=== PATIENT | male | born 1960 | race Caucasian/White ===

== ENCOUNTER 2018-01-08 12:30 | Observation (INO) ==
[2018-01-08 13:53] LABS: Basophils % 0.7 %; Eosinophils # 0.2 K/mcL (0.0-0.6); Eosinophils % 3.9 %; Hematocrit 39.2 % (37.5-50.1); Hemoglobin 13.4 g/dL (12.9-16.9); Immature Granulocytes % 0.2 % (0-4); Lymphocytes # 1.5 K/mcL (0.6-4.6); Lymphocytes % 25.2 %; Mean Corpuscular HGB Conc 34.2 g/dL (31.6-35.5); Mean Corpuscular Hemoglobin 32.8 pg (28.0-33.3); Mean Corpuscular Volume 96.1 fL (83.0-100.0); Mean Platelet Volume 9.9 fL (9.4-12.4); Monocytes # 0.8 K/mcL (0.0-1.3); Monocytes % 13.7 %; Neutrophils # 3.3 K/mcL (1.6-8.9); Platelet Count 126 K/mcL (140-400); Red Blood Count 4.08 M/mcL (4.19-5.50); Red Cell Distribution Width 14.2 % (11.5-14.5); Segmented Neutrophils % 56.3 %
[2018-01-08 14:14] LABS: BUN/Creatinine Ratio 16 (6-26); Blood Urea Nitrogen 13 mg/dL (6-20); Calcium 10.2 mg/dL (8.6-10.3); Carbon Dioxide 24 mEq/L (23-29); Chloride 106 mEq/L (98-107); Glucose 118 mg/dL (70-105); Osmolality,Calculated 285 (280-300); Potassium 4.2 mEq/L (3.5-5.1); Sodium 137 mEq/L (136-145); eGFR For Non-African Americans > 60 (> 60)
[2018-01-08 14:15] LABS: Troponin I < 0.03 ng/mL (< 0.04)
[2018-01-08] MEDS ORDERED: Sulfamethoxazole/Trimeth DS 1 EACH TABLET PO STA (15:14)
[2018-01-08] MEDS ORDERED: cephALEXin 250 MG CAPSULE PO STA (15:14)
--- NOTE | 2018-01-08 15:17 | Emergency Department Note ---
Disposition Clinical Impression: Cellulitis Qualifiers: Site of cellulitis: extremity Site of cellulitis of extremity: lower extremity Laterality: right Qualified Code(s): L03.115 - Cellulitis of right lower limb Disposition: Admitted As Inpatient Condition: Good Instructions: Cellulitis (ED) Reasons to Return/Additional Instructions: Take medications as prescribed. Continue to monitor for worsening redness. Return to the emergency department if the redness worsens despite antibiotics or he begins to have fevers or chills or worsening pain in the right leg. Otherwise, follow-up with your primary care physician in the next 2-3 days to have this reevaluated. Referrals: Willow Nick CNP [Primary Care Provider] - Forms: ED Satisfaction Letter Extremity Problem HPI - General Chief complaint: ED Extremity Problem,Nontraumatic Stated complaint: r/o cellulitis Time Seen by Provider: 01/08/18 12:38 Source: patient Mode of arrival: ambulatory Limitations: no limitations Nursing Notes Reviewed: Yes Vital Signs Reviewed: Yes - History of Present Illness HPI Narrative: Patient presents today for evaluation of right leg cellulitis. Patient states that he had swelling started on Thursday. Was sent for a ultrasound DVT. Ultrasound was negative. His primary care told him that and told him to come to the emergency department for evaluation for possible cellulitis and treatment. Patient has not had fevers or chills. Patient has had increased erythema of the lower leg which is approximately 7" x 3" in size. Not circumferential. Tenderness to touch and ultrasound shows cellulitis without any significant air. His distal pulses are intact without deficit. He does complain of some mild pain with ambulation. At this time the patient does not have any overt signs of sepsis. Patient will receive blood work for further evaluation. Pain Scale: 6 - Related Data Home Medications Medication Instructions Recorded Confirmed Acetaminophen [Tylenol] 500 mg PO BID PRN 11/11/16 01/08/18 Aspirin Enteric Coated [Aspirin EC] 81 mg PO DAILY 11/11/16 01/08/18 Cinnamon Bark [Cinnamon] 500 mg PO DAILY 11/11/16 01/08/18 Docusate [Colace] 200 mg PO DAILY 11/11/16 01/08/18 Insulin Glargine [Lantus] 40 unit SQ BID 11/11/16 01/08/18 Insulin LISPRO [HumaLOG] 35 unit SQ QPM 11/11/16 01/08/18 Losartan Potassium [Cozaar] 100 mg PO DAILY 11/11/16 01/08/18 Metformin HCl [Glucophage] 1,000 mg PO BID 11/11/16 01/08/18 Multivitamin [One Daily 1 each PO DAILY 11/11/16 01/08/18 Multivitamin] Metoprolol Succinate [Toprol Xl] 100 mg PO DAILY 01/08/18 01/08/18 Allergies Allergy/AdvReac Type Severity Reaction Status Date / Time No Known Allergies Allergy Verified 12/05/17 08:54 Review of Systems: CONSTITUTIONAL: No weight loss, fever, chills, weakness or fatigue. HEENT: Eyes: No visual changes. Ears, Nose, Throat: No hearing loss, difficulty talking or unable to swallow. SKIN: Erythema and swelling to the lower extremity. CARDIOVASCULAR: No chest pain, chest pressure or chest discomfort. No palpitations or edema. RESPIRATORY: No shortness of breath, cough or sputum. GASTROINTESTINAL: No anorexia, nausea, vomiting or diarrhea. No abdominal pain or blood. GENITOURINARY: No burning on urination or hematuria. NEUROLOGICAL: No headache, dizziness, syncope, paralysis, ataxia, numbness or tingling in the extremities. No change in bowel or bladder control. MUSCULOSKELETAL: Right leg pain. Past Medical History - Past Medical History Medical history: Reports: hyperlipidemia, kidney stones, other Surgical history: Reports: appendectomy, cholecystectomy Psychiatric history: Reports: no psych history - Social History Smoking Status: Never smoker Smokeless Tobacco Status: No Alcohol use: Reports: none Drug use: Reports: none Physical Exam General appearance: NAD, conversant Eyes: anicteric sclerae, moist conjunctivae; HENT: Atraumatic; oropharynx clear with moist mucous membranes Neck: Normal appearance; Trachea midline Chest: Symmetrical chest rise; No respiratory distress Extremities: Right leg with erythema and tenderness. No neurovascularly intact distally. Leg has been marked. Bedside ultrasound shows cellulitis without abscess or other infection. No crepitus. Skin: Normal temperature, turgor and texture; no rash, ulcers or subcutaneous nodules Psych: Appropriate mood and affect Neuro: Awake and alert Course - Reevaluation(s) Reevaluation #1: I discussed the patient's test results. Initially plans were to discharge him home however he did have an elevated lactate and they have their own concerns about discharged home secondary to significance of erythema. He does have elevated lactic acid at 2.6. Patient's logical as it has been elevated in the past. Given his elevated lactic acid and history of diabetes as well as the patient's complaints of pain and concern for difficulty ambulating at home, he will be admitted to the hospital for further treatment of his cellulitis. - Consultations Consultation #1: Discussed with hospitalist. Patient accepted for admission. Vital Signs Temperature 98.4 F 01/08/18 12:34 Pulse Rate 82 01/08/18 12:34 Respiratory Rate 18 01/08/18 12:34 Blood Pressure 128/69 01/08/18 12:34 O2 Sat by Pulse Oximetry 95 01/08/18 12:34 Temperature 98.4 F 01/08/18 12:50 Pulse Rate 76 01/08/18 16:00 Respiratory Rate 18 01/08/18 16:00 Blood Pressure 149/74 01/08/18 16:00 O2 Sat by Pulse Oximetry 95 01/08/18 16:00 Oxygen Delivery Oxygen Delivery Room Air Extremity Problem, Nontraumati - Lab Data Result diagrams: 01/08/18 13:37 01/08/18 13:37 Lab Results 01/08/18 01/08/18 01/08/18 Range/Units 13:37 13:37 13:37 WBC 5.9 (4.3-11.1) K/mcL RBC 4.08 L (4.19-5.50) M/mcL Hgb 13.4 (12.9-16.9) g/dL Hct 39.2 (37.5-50.1) % MCV 96.1 (83.0-100.0) fL MCH 32.8 (28.0-33.3) pg MCHC 34.2 (31.6-35.5) g/dL RDW 14.2 (11.5-14.5) % Plt Count 126 L (140-400) K/mcL MPV 9.9 (9.4-12.4) fL Immature Gran % 0.2 (0-4) % Seg Neutrophils % 56.3 % Lymphocytes % 25.2 % Monocytes % 13.7 % Eosinophils % 3.9 % Basophils % 0.7 % Neutrophils # 3.3 (1.6-8.9) K/mcL Lymphocytes # 1.5 (0.6-4.6) K/mcL Monocytes # 0.8 (0.0-1.3) K/mcL Eosinophils # 0.2 (0.0-0.6) K/mcL Basophils # 0.0 (0.0-0.2) K/mcL Sodium 137 (136-145) mEq/L Potassium 4.2 (3.5-5.1) mEq/L Chloride 106 (98-107) mEq/L Carbon Dioxide 24 (23-29) mEq/L BUN 13 (6-20) mg/dL Creatinine 0.81 (0.70-1.30) mg/dL Est GFR ( Amer) > 60 (> 60) Est GFR (Non-Af Amer) > 60 (> 60) BUN/Creatinine Ratio 16 (6-26) Glucose 118 H (70-105) mg/dL Calculated Osmolality 285 (280-300) Lactic Acid 2.6 H (0.5-2.2) mmol/L Calcium 10.2 (8.6-10.3) mg/dL Troponin I < 0.03 (< 0.04) ng/mL
[2018-01-08] MEDS ORDERED: 0.9 % Sodium Chloride 1,000 ML IVC ONE (15:35)
[2018-01-08] MEDS ORDERED: Cefepime HCl 2,000 MG in 0.9 % Sodium Chloride Mini Bag 100 ML IVPB STA (16:33)
--- NOTE | 2018-01-08 17:22 | Internal Med History&Physical ---
Date of Encounter: 01/08/18 Time of Encounter: 17:00 Internal Medicine - H&P: HPI Chief complaint: Right Lower Extremity Cellulitis Admitted From: Home Plans for Post Hospital Care: Home History of present illness: Mr. Latham is a 57 year old male presents today from home per direction of his PCP [facility] for right lower extremity redness, swelling, and pain. States RLE pain started five days ago on Thursday and saw PCP for same on Thursday and was sent for DVT ultrasound which was negative. States pain continued to worsen and then began to also notice swelling and redness that continues to increase. States he tried applying diluted rubbing alcohol at home but denies any other current treatment. States the pain feels like squeezing pressure around entire leg. Also states the pain is exacerbated with standing and alleviated with rest and elevation. Past Med Surg Social Fam HX - Past Medical History Medical history: hyperlipidemia, kidney stones, other Additional medical history: SLEEP APNEA. FATTY LIVER. MORBID OBESITY. KIDNEY STONES Psychiatric history: no psych history - Past Surgical History Surgical History: appendectomy, cholecystectomy Additional surgical history: KIDNEY STONES - Social History Smoking Status: Never smoker Smokeless Tobacco Status: No Alcohol use: none Drug use: none - Family History Mother Living Status: Still Living Hx Family Cardiac Disorders: Yes (MS WITH STENTS) Hx Family Endocrine Disorder: Yes (DM) Father Living Status: Internal Medicine - H&P: Meds Acetaminophen [Tylenol] 500 mg PO BID PRN 11/11/16 [History] Aspirin Enteric Coated [Aspirin EC] 81 mg PO DAILY 11/11/16 [History] Cinnamon Bark [Cinnamon] 500 mg PO DAILY 11/11/16 [History] Docusate [Colace] 200 mg PO DAILY 11/11/16 [History] Insulin Glargine [Lantus] 40 unit SQ BID 11/11/16 [History] Insulin LISPRO [HumaLOG] 35 unit SQ BID 11/11/16 [History] Losartan Potassium [Cozaar] 100 mg PO DAILY 11/11/16 [History] Metformin HCl [Glucophage] 1,000 mg PO BID 11/11/16 [History] Multivitamin [One Daily Multivitamin] 1 each PO DAILY 11/11/16 [History] Metoprolol Succinate [Toprol Xl] 100 mg PO DAILY 01/08/18 [History] 3 Allergy/AdvReac Type Severity Reaction Status Date / Time No Known Allergies Allergy Verified 12/05/17 08:54 All Systems PM: A 10-system review of systems was performed and is negative for pertinent findings except as documented above in the HPI. Review of systems: A 10 system review of systems was performed and is negative for pertinent findings except as documented above in HPI. - Constitutional Vitals: Temp Pulse Resp BP Pulse Ox 98.4 F 76 18 149/74 95 01/08/18 12:50 01/08/18 16:00 01/08/18 16:00 01/08/18 16:00 01/08/18 16:00 Exam: General: Alert and oriented. Skin:Non circumferential erythema and swelling noted to right lower extremity without abscess or drainage. Skin changes boundary marked by ED staff. HEENT:EOM, pupils equal, round and reactive. Cardiovascular:Normal S1 & S2, no rubs, murmurs or gallops. No JVD. Pulse regular. Lungs:Normal breath sounds, no wheezes or crackles. Abdomen:Round, soft, non-tender, no rigidity. Extremities:No deformity, right lower extremity changes as noted under skin assessment. Neurological:Normal cognition and motor skills. Pulses:Carotid and radial pulses normal +2. Right lower extremity PMS intact. Rest of the physical exam is non contributory Internal Med - H&P Results - Labs CBC & Chem 7: 01/08/18 13:37 01/08/18 13:37 - Assessment and plan (1) Cellulitis Current Visit: Yes Status: Acute Assessment and plan: Suspected right lower extremity cellulitis confirmed in ER with ultrasound. Blood cultures drawn. Will continue IV antibiotics. Cellulitis boundaries marked by ER staff. Qualifiers: Site of cellulitis: extremity Site of cellulitis of extremity: lower extremity Laterality: right Qualified Code(s): L03.115 - Cellulitis of right lower limb (2) Lactic acid increased Current Visit: Yes Status: Acute Assessment and plan: Will repeat lactic acid. - Time Spent With Patient Total time spent is greater than 50% in coordination of care (as documented) at patient's floor/unit and/or counseling patient:
[2018-01-08] MEDS ORDERED: Naloxone 0.4 MG/ML INJ IVP PRN (17:45)
[2018-01-08] MEDS ORDERED: Insulin LISPRO 300 UNITS/3 ML VIAL SQ SCH (18:00)
[2018-01-08] MEDS ORDERED: D5% in Water 1,000 ML IVC PRN (19:17)
[2018-01-08] MEDS ORDERED: *HR* Dextrose 50 % in Water (Syg) 50 ML SYRINGE IVP PRN (19:17)
[2018-01-08] MEDS ORDERED: Dextrose Gel 15 GM/37.5 ML TUBE PO PRN ×2 (19:17)
[2018-01-08] MEDS ORDERED: Insulin DETEMIR 100 UNIT/ML X5UNITS SQ SCH (21:00)
[2018-01-08] MEDS: *HR* Metformin 500 MG TABLET PO SCH (21:24)
[2018-01-08] MEDS: Insulin LISPRO 300 UNITS/3 ML VIAL SQ SCH (21:24)
[2018-01-08] MEDS: Insulin DETEMIR 100 UNIT/ML X5UNITS SQ SCH (21:24)
[2018-01-09] MEDS ORDERED: Vancomycin 0 MG in 0.9 % Sodium Chloride 250 ML IVPB SCH (09:00)
[2018-01-09] MEDS: Insulin LISPRO 300 UNITS/3 ML VIAL SQ SCH ×4 (11:18→21:52)
[2018-01-09] MEDS: Multivit/Ca/Min/Fe/FA 1 TAB TABLET PO SCH (11:25)
[2018-01-09] MEDS: Aspirin Enteric Coated 81 MG Tablet PO SCH (11:25)
[2018-01-09] MEDS: (Cinnamon Bark [Cinnamon] 500 MG) PO SCH (11:25)
[2018-01-09] MEDS: *HR* Metformin 500 MG TABLET PO SCH ×2 (11:25→18:21)
[2018-01-09] MEDS: Insulin DETEMIR 100 UNIT/ML X5UNITS SQ SCH ×2 (11:25→21:04)
[2018-01-09] MEDS: Metoprolol XL (24 HR) Succ 50 MG TAB.ER.24H PO SCH (11:25)
[2018-01-09] MEDS: ceFAZolin 1,000 MG in 0.9 % Sodium Chloride Mini Bag 100 ML IVPB SCH ×2 (11:33→18:20)
--- NOTE | 2018-01-09 13:23 | Internal Med Progress Note ---
Hospitalist Progress Note - Encounter Date of Encounter: 01/09/18 Time of Encounter: 13:21 - Subjective Interval History: Patient evaluated earlier today. Continues to have some pain in his right leg but this has improved overall. However pain gets worse with any movement or activity. He denies any fevers or chills. He has noticed the swelling and redness has come down from the markings placed in the ER yesterday. Denies any fevers or chills. No other issues reported overnight. - Exam Vitals: Temp Pulse Resp BP Pulse Ox 97.9 F 76 16 150/80 96 01/09/18 10:46 01/09/18 10:46 01/09/18 10:46 01/09/18 10:46 01/09/18 10:46 Exam: General: Patient is alert, no acute distress, oriented x 3 Head: atraumatic, normocephalic, Eye: normal appearance, PERRL, no scleral icterus, no conjunctival injection Neck: normal inspection, trachea midline, full ROM, no carotid bruits Chest: normal inspection, symmetric chest rise Respiratory: Good respiratory effort. Normal breath sounds. No wheezing or crackles. Cardiovascular: Regular rate and rhythm. s1 and s2 No clicks, rubs, gallops, or murmurs. No pedal edema Abdomen: Abdomen is soft, nontender. Bowel sounds are present Musculoskeletal: Spontaneously moving all extremities Skin: Erythema involving the right lower extremity. Margins appear to be clearing. Overall extent of cellulitis appears decreased compared to yesterday' s markings. Tender to palpation. Neuro: Alert oriented x 3 normal cranial nerves, no focal deficits Psych: Patient's affect is normal - Assessment and Plan (1) Cellulitis Current Visit: Yes Status: Acute Assessment and Plan: Involving the right lower extremity. Improving. Continue current antibiotics. Lumbar elevation. Patient still concerned about increasing pain with ambulation. Will continue current treatment for another day and plan on discharge tomorrow on oral antibiotics. Add cefazolin for gram-negative coverage. (2) Lactic acid increased Current Visit: Yes Status: Resolved Assessment and Plan: Likely due to metformin use. Now resolved. (3) Essential hypertension Current Visit: Yes Status: Chronic Assessment and Plan: Blood pressure elevated intermittently. Will continue losartan, metoprolol. If persistently elevated, will increase antihypertensive regimen. (4) Diabetes mellitus Current Visit: Yes Status: Chronic Assessment and Plan: Monitor blood sugars. Sliding scale insulin. Diabetic diet. DVT Prophylaxis: Start subcutaneous heparin - Time Spent with Patient Total time spent is greater than 50% in coordination of care (as documented) at patient's floor/unit and/or counseling patient: Internal Medicine: Result - Labs CBC & Chem 7: 01/08/18 13:37 01/08/18 13:37 Consult Discharge Plan - Plan Referrals: Willow Nick CNP [Primary Care Provider] - (1) Cellulitis Qualifiers: Site of cellulitis: extremity Site of cellulitis of extremity: lower extremity Laterality: right Qualified Code(s): L03.115 - Cellulitis of right lower limb (4) Diabetes mellitus Qualifiers: Diabetes mellitus type: type 2 Diabetes mellitus 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
[2018-01-10] MEDS: ceFAZolin 1,000 MG in 0.9 % Sodium Chloride Mini Bag 100 ML IVPB SCH ×2 (00:01→08:59)
[2018-01-10 01:03] LABS: Basophils # 0.1 K/mcL (0.0-0.2); Basophils % 0.7 %; Eosinophils # 0.3 K/mcL (0.0-0.6); Eosinophils % 3.9 %; Hematocrit 40.3 % (37.5-50.1); Hemoglobin 14.1 g/dL (12.9-16.9); Immature Granulocytes % 0.3 % (0-4); Lymphocytes % 27.9 %; Mean Corpuscular Hemoglobin 33.6 pg (28.0-33.3); Mean Platelet Volume 10.1 fL (9.4-12.4); Monocytes # 0.9 K/mcL (0.0-1.3); Monocytes % 12.1 %; Neutrophils # 3.9 K/mcL (1.6-8.9); Platelet Count 134 K/mcL (140-400); Red Cell Distribution Width 14.2 % (11.5-14.5); Segmented Neutrophils % 55.1 %
[2018-01-10 01:12] LABS: BUN/Creatinine Ratio 13 (6-26); Blood Urea Nitrogen 13 mg/dL (6-20); Carbon Dioxide 24 mEq/L (23-29); Chloride 103 mEq/L (98-107); Glucose 113 mg/dL (70-105); Potassium 3.9 mEq/L (3.5-5.1); Sodium 135 mEq/L (136-145); eGFR For Non-African Americans > 60 (> 60)
[2018-01-10 01:13] LABS: Calcium 9.6 mg/dL (8.6-10.3); Osmolality,Calculated 281 (280-300)
[2018-01-10 07:35] VITALS: BP 137/82
[2018-01-10] MEDS: Insulin LISPRO 300 UNITS/3 ML VIAL SQ SCH ×2 (08:46→11:41)
[2018-01-10] MEDS: Metoprolol XL (24 HR) Succ 50 MG TAB.ER.24H PO SCH (09:00)
[2018-01-10] MEDS: *HR* Metformin 500 MG TABLET PO SCH (09:01)
[2018-01-10] MEDS: Aspirin Enteric Coated 81 MG Tablet PO SCH (09:01)
[2018-01-10] MEDS: Insulin DETEMIR 100 UNIT/ML X5UNITS SQ SCH (09:01)
[2018-01-10] MEDS: Multivit/Ca/Min/Fe/FA 1 TAB TABLET PO SCH (09:01)
[2018-01-10] MEDS: (Cinnamon Bark [Cinnamon] 500 MG) PO SCH (09:02)
--- NOTE | 2018-01-10 11:09 | Discharge Summary ---
- NOTES TO OUTPATIENT PROVIDER Notes to Outpatient Provider: Patient was hospitalized with cellulitis involving her right lower leg. He had not been on antibiotics but was being followed by his primary care provider. He was started on IV antibiotics here and has had significant improvement in his erythema and pain. Venous Dopplers were checked and patient did not have any DVT. He is stable to be discharged home on oral antibiotics. He will follow up with his primary care provider for further management. 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 Latham is a 57 year old male Patient with history of hyperlipidemia, kidney stones who was hospitalized with cellulitis involving her right lower leg. He had not been on antibiotics but was being followed by his primary care provider. He was started on IV antibiotics here and has had significant improvement in his erythema and pain. Venous Dopplers were checked and patient did not have any DVT. He is stable to be discharged home on oral antibiotics. He will follow up with his primary care provider for further management. Discharge discussed with: patient, family, nurse - Time Spent with Patient Total time spent providing and/or coordinating discharge services: Less than 30 minutes (25 min) - Discharge Medications Prescriptions: Amoxicillin/Clavulanate [Augmentin] 875 mg PO BIDWM #18 tablet Doxycycline 100 mg PO BID #18 capsule Lactobacillus Acidophilus [Acidophilus] 1 each PO BID #20 tablet Home Medications: Acetaminophen [Tylenol] 500 mg PO BID PRN 11/11/16 [History] Aspirin Enteric Coated [Aspirin EC] 81 mg PO DAILY 11/11/16 [History] Cinnamon Bark [Cinnamon] 500 mg PO DAILY 11/11/16 [History] Docusate [Colace] 200 mg PO DAILY 11/11/16 [History] Insulin Glargine [Lantus] 40 unit SQ BID 11/11/16 [History] Insulin LISPRO [HumaLOG] 35 unit SQ BID 11/11/16 [History] Losartan Potassium [Cozaar] 100 mg PO DAILY 11/11/16 [History] Metformin HCl [Glucophage] 1,000 mg PO BID 11/11/16 [History] Multivitamin [One Daily Multivitamin] 1 each PO DAILY 11/11/16 [History] Metoprolol Succinate [Toprol Xl] 100 mg PO DAILY 01/08/18 [History] Amoxicillin/Clavulanate [Augmentin] 875 mg PO BIDWM #18 tablet 01/10/18 [Rx] Doxycycline 100 mg PO BID #18 capsule 01/10/18 [Rx] Lactobacillus Acidophilus [Acidophilus] 1 each PO BID #20 tablet 01/10/18 [Rx] Allergies/Adverse Reactions: 3 Allergy/AdvReac Type Severity Reaction Status Date / Time No Known Allergies Allergy Verified 12/05/17 08:54 Date of admission: 01/08/18 16:58 Primary care physician: Willow Nick, [facility] Discharging clinician: Lesa Weller Anticipated date of discharge: 01/10/18 - Constitutional Vitals: Temp Pulse Resp BP Pulse Ox 98.5 F 80 16 137/82 95 01/10/18 07:25 01/10/18 07:25 01/10/18 07:25 01/10/18 07:25 01/10/18 07:25 General appearance: Present: cooperative, A&O X 3, answers questions appropriately - Neck Neck exam general surgery: Present: supple, trachea midline. Absent: lymphadenopathy - Respiratory Respiratory exam: Present: CTAB. Absent: accessory muscle use, rales, rhonchi, wheezes - Cardiovascular Cardiovascular exam: Present: RRR, +S1, +S2. Absent: diastolic murmur, gallop, rubs, systolic murmur - GI/Abdominal GI/Abdominal exam: Present: normal bowel sounds, soft, no peritoneal signs. Absent: distended, tenderness - Extremities Exam Extremities exam: Present: warm, radial pulses palpable and symmetrical. Absent : calf tenderness, cyanotic, pedal edema Additional comments: Erythema and swelling over the right lower extremity is improving. - Patient Status Disposition: Home, Self-Care Condition: Good Functional capacity at discharge: independent ambulation Overall status at discharge: patient is progressing back to baseline - Discharge Instructions Instructions: Cellulitis (DC), Diabetes Mellitus Type 2 in Adults (DC), Chronic Hypertension (DC) Follow Up With: Willow Nick CNP [Primary Care Provider] - (In 1-2 weeks) - Diet and Activity Activity: increase activity as tolerated Diet: advance to your usual diet, diabetic diet
[2018-01-10] MEDS ORDERED: Aminoglycoside Consult 1 EACH MC ONE (14:29)
== END 2018-01-10 14:30 | disposition home or self-care (01) ==
LOC: 3ANU 12:30 → EMEROO 12:30 → SUATTDRO 16:58 → 3ANU 17:46
PROVIDERS: ADMIT Internal Medicine; ATTEND Internal Medicine

== ENCOUNTER 2021-01-07 18:49 | Observation (INO) ==
[2021-01-07 20:17] LABS: Basophils % 0.7 %; Eosinophils # 0.3 K/mcL (0.0-0.6); Eosinophils % 4.2 %; Hematocrit 40.3 % (37.5-50.1); Hemoglobin 14.1 g/dL (12.9-16.9); Immature Granulocytes % 0.2 % (0-4); Lymphocytes # 1.6 K/mcL (0.6-4.6); Lymphocytes % 26.6 %; Mean Corpuscular Hemoglobin 34.6 pg (28.0-33.3); Mean Corpuscular Volume 98.8 fL (83.0-100.0); Mean Platelet Volume 10.5 fL (9.4-12.4); Monocytes # 0.7 K/mcL (0.0-1.3); Monocytes % 12.4 %; Neutrophils # 3.3 K/mcL (1.6-8.9); Platelet Count 101 K/mcL (140-400); Red Blood Count 4.08 M/mcL (4.19-5.50); Red Cell Distribution Width 14.6 % (11.5-14.5); Segmented Neutrophils % 55.9 %
[2021-01-07 20:25] LABS: BUN/Creatinine Ratio 16 (6-26); Blood Urea Nitrogen 15 mg/dL (8-23); Calcium 10.3 mg/dL (8.6-10.3); Carbon Dioxide 25 mEq/L (23-29); Chloride 102 mEq/L (98-107); Glucose 253 mg/dL (70-105); Osmolality,Calculated 291 (280-300); Potassium 4.3 mEq/L (3.5-5.1); Sodium 136 mEq/L (136-145); Troponin I < 0.03 ng/mL (< 0.04); eGFR For African Americans > 60 (> 60); eGFR For Non-African Americans > 60 (> 60)
[2021-01-07] MEDS ORDERED: Isovue-370 500 ML BOTTLE IVP ONE (20:53)
[2021-01-07] MEDS: Nitroglycerin 0.4 MG TAB.SUBL SL PRN ×2 (21:15→21:21)
[2021-01-08] MEDS ORDERED: Perflutren Lipid Microsphere 1.3 ML in 0.9 % Sodium Chloride 8.7 ML IVP PRN (01:11)
[2021-01-08] MEDS ORDERED: *HR* Dextrose 50 % in Water (Vial) 50 ML VIAL IVP PRN (01:12)
[2021-01-08] MEDS ORDERED: D5% in Water 1,000 ML IVC PRN (01:12)
[2021-01-08] MEDS ORDERED: Dextrose Gel 15 GM/37.5 ML TUBE PO PRN ×2 (01:12)
[2021-01-08] MEDS ORDERED: Naloxone 0.4 MG/ML INJ IVP PRN (01:19)
[2021-01-08] MEDS ORDERED: Ondansetron 4 MG/2 ML VIAL IVP PRN (01:19)
[2021-01-08] MEDS: Morphine Sulfate 2 MG/ML SYRINGE IVP PRN ×4 (01:32→20:57)
[2021-01-08 02:07] LABS: Hematocrit 38.3 % (37.5-50.1); Mean Corpuscular Volume 97.2 fL (83.0-100.0); Mean Platelet Volume 10.1 fL (9.4-12.4); Red Blood Count 3.94 M/mcL (4.19-5.50)
[2021-01-08 02:09] LABS: Hemoglobin 13.3 g/dL (12.9-16.9); Immature Platelets 2.6 % (1.1-6.1); Mean Corpuscular HGB Conc 34.7 g/dL (31.6-35.5); Mean Corpuscular Hemoglobin 33.8 pg (28.0-33.3); Red Cell Distribution Width 14.5 % (11.5-14.5); White Blood Count 6.1 K/mcL (4.3-11.1)
[2021-01-08 02:25] LABS: Albumin 3.9 g/dL (3.5-5.7); Albumin/Globulin Ratio 1.2 (1.1-2.2); Bilirubin,Direct 0.1 mg/dL (0.0-0.2); Bilirubin,Indirect 0.6 mg/dL (0.0-1.0); Bilirubin,Total 0.7 mg/dL (0.3-1.0); Globulin 3.3 g/dL (2.4-3.5); Total Protein 7.2 g/dL (6.4-8.9)
[2021-01-08 02:28] LABS: BUN/Creatinine Ratio 16 (6-26); Blood Urea Nitrogen 14 mg/dL (8-23); Calcium 9.9 mg/dL (8.6-10.3); Carbon Dioxide 25 mEq/L (23-29); Chloride 105 mEq/L (98-107); Chol/HDL Ratio 3.7 (0-4.9); Cholesterol 125 mg/dL (< 200); Glucose 128 mg/dL (70-105); HDL Cholesterol 34 mg/dL (40-59); LDL Cholesterol,Calculated 67 mg/dL (< 100); Magnesium 1.8 mg/dL (1.6-2.6); Osmolality,Calculated 290 (280-300); Potassium 4.1 mEq/L (3.5-5.1); Sodium 139 mEq/L (136-145); Triglycerides 121 mg/dL (< 150); eGFR For African Americans > 60 (> 60); eGFR For Non-African Americans > 60 (> 60)
[2021-01-08 02:29] LABS: Troponin I < 0.03 ng/mL (< 0.04)
[2021-01-08 02:38] LABS: INR 1.2; Prothrombin Time 13.4 Seconds (9.4-12.1)
[2021-01-08 02:41] LABS: Activated Partial Thrombo Time 30.8 Seconds (26.0-36.0); Thyroid Stimulating Hormone 2.579 mcIU/mL (0.340-5.600)
[2021-01-08 02:51] LABS: Folate > 22.3 ng/mL (3.0-16.0); Vitamin B12 647 pg/mL (250-1100)
[2021-01-08 03:17] LABS: Estimated Average Glucose 169 mg/dl; Hemoglobin A1C 7.5 %
[2021-01-08] MEDS: *HR* Heparin 5,000 UNIT/ML VIAL SQ SCH ×2 (05:41→13:06)
[2021-01-08] MEDS ORDERED: *HR* Metoprolol 5 MG/5 ML VIAL IVP ONE (06:05)
[2021-01-08] MEDS: Insulin LISPRO 300 UNITS/3 ML VIAL SUBQ SCH ×3 (06:13→16:43)
[2021-01-08] MEDS ORDERED: Regadenoson 0.4 MG/5 ML SYRINGE IVP ONE (06:19)
[2021-01-08] MEDS: Spironolactone 25 MG TABLET PO SCH (12:17)
[2021-01-08] MEDS: Aspirin Enteric Coated 81 MG Tablet PO SCH (12:17)
[2021-01-08] MEDS: lisinopriL 5 MG TABLET PO SCH (12:17)
[2021-01-08] MEDS: Lactulose Oral Soln 20 GM/30 ML UDC PO SCH ×2 (13:07→20:51)
[2021-01-09 05:05] LABS: Basophils % 0.7 %; Hematocrit 39.9 % (37.5-50.1); Mean Corpuscular Hemoglobin 33.5 pg (28.0-33.3)
[2021-01-09 05:08] LABS: Eosinophils # 0.2 K/mcL (0.0-0.6); Eosinophils % 3.7 %; Hemoglobin 13.5 g/dL (12.9-16.9); Immature Granulocytes % 0.4 % (0-4); Immature Platelets 2.2 % (1.1-6.1); Lymphocytes # 1.4 K/mcL (0.6-4.6); Mean Corpuscular HGB Conc 33.8 g/dL (31.6-35.5); Mean Platelet Volume 10.4 fL (9.4-12.4); Monocytes # 0.8 K/mcL (0.0-1.3); Monocytes % 14.2 %; Red Blood Count 4.03 M/mcL (4.19-5.50); Red Cell Distribution Width 14.4 % (11.5-14.5); White Blood Count 5.4 K/mcL (4.3-11.1)
[2021-01-09 05:14] LABS: INR 1.2
[2021-01-09 05:15] LABS: Platelet Count 98 K/mcL (140-400)
[2021-01-09 05:18] LABS: Albumin 3.8 g/dL (3.5-5.7); Bilirubin,Direct 0.3 mg/dL (0.0-0.2); Bilirubin,Indirect 0.6 mg/dL (0.0-1.0); Bilirubin,Total 0.9 mg/dL (0.3-1.0); Globulin 3.8 g/dL (2.4-3.5); Total Protein 7.6 g/dL (6.4-8.9)
[2021-01-09 05:23] LABS: Alanine Aminotransferase 31 Units/L (7-52); Albumin 3.8 g/dL (3.5-5.7); Alkaline Phosphatase 57 Units/L (34-104); Aspartate Amino Transferase 28 Units/L (13-39); BUN/Creatinine Ratio 17 (6-26); Bilirubin,Total 0.9 mg/dL (0.3-1.0); Blood Urea Nitrogen 14 mg/dL (8-23); Calcium 9.5 mg/dL (8.6-10.3); Carbon Dioxide 24 mEq/L (23-29); Chloride 104 mEq/L (98-107); Globulin 3.7 g/dL (2.4-3.5); Glucose 212 mg/dL (70-105); Magnesium 1.8 mg/dL (1.6-2.6); Osmolality,Calculated 291 (280-300); Sodium 137 mEq/L (136-145); Total Protein 7.5 g/dL (6.4-8.9); eGFR For African Americans > 60 (> 60); eGFR For Non-African Americans > 60 (> 60)
[2021-01-09 05:38] LABS: Hepatitis B Surface Antigen Nonreactive (Nonreactive)
[2021-01-09 06:07] LABS: Hepatitis C Virus Antibody Nonreactive (Nonreactive)
[2021-01-09 06:08] LABS: Hepatitis B Core IgM Nonreactive (Nonreactive)
[2021-01-09 06:10] LABS: Hepatitis A Antibody IgM Nonreactive (Nonreactive)
[2021-01-09] MEDS: Metoprolol XL (24 HR) Succ 50 MG TAB.ER.24H PO SCH (08:35)
[2021-01-09] MEDS: Spironolactone 25 MG TABLET PO SCH (08:35)
[2021-01-09] MEDS: Aspirin Enteric Coated 81 MG Tablet PO SCH (08:35)
[2021-01-09] MEDS: lisinopriL 5 MG TABLET PO SCH (08:35)
[2021-01-09] MEDS: Insulin LISPRO 300 UNITS/3 ML VIAL SUBQ SCH ×3 (08:36→17:18)
[2021-01-09] MEDS: Lactulose Oral Soln 20 GM/30 ML UDC PO SCH ×2 (08:36→20:16)
[2021-01-09] MEDS ORDERED: Insulin LISPRO 300 UNITS/3 ML VIAL SUBQ SCH (21:00)
[2021-01-10 01:31] LABS: Hemoglobin 13.7 g/dL (12.9-16.9); Mean Platelet Volume 9.9 fL (9.4-12.4); Red Cell Distribution Width 14.4 % (11.5-14.5)
[2021-01-10 01:33] LABS: Basophils % 0.4 %; Eosinophils # 0.3 K/mcL (0.0-0.6); Hematocrit 39.6 % (37.5-50.1); Immature Granulocytes % 0.3 % (0-4); Immature Platelets 2.2 % (1.1-6.1); Lymphocytes # 1.6 K/mcL (0.6-4.6); Lymphocytes % 22.7 %; Mean Corpuscular HGB Conc 34.6 g/dL (31.6-35.5); Mean Corpuscular Hemoglobin 33.9 pg (28.0-33.3); Monocytes % 14.3 %; Neutrophils # 4.1 K/mcL (1.6-8.9); Red Blood Count 4.04 M/mcL (4.19-5.50); Segmented Neutrophils % 58.3 %
[2021-01-10 01:35] LABS: Platelet Count 97 K/mcL (140-400)
[2021-01-10 01:53] LABS: BUN/Creatinine Ratio 20 (6-26); Blood Urea Nitrogen 15 mg/dL (8-23); Calcium 9.4 mg/dL (8.6-10.3); Carbon Dioxide 21 mEq/L (23-29); Chloride 104 mEq/L (98-107); Glucose 174 mg/dL (70-105); Magnesium 1.7 mg/dL (1.6-2.6); Osmolality,Calculated 281 (280-300); Phosphorous 2.7 mg/dL (2.7-4.5); Potassium 4.2 mEq/L (3.5-5.1); Sodium 133 mEq/L (136-145); eGFR For African Americans > 60 (> 60); eGFR For Non-African Americans > 60 (> 60)
[2021-01-10 07:11] VITALS: BP 132/77; PULSE 76; TEMP 97.7; O2SAT 95
[2021-01-10] MEDS: Spironolactone 25 MG TABLET PO SCH (08:17)
[2021-01-10] MEDS: lisinopriL 5 MG TABLET PO SCH (08:17)
[2021-01-10] MEDS: Aspirin Enteric Coated 81 MG Tablet PO SCH (08:17)
[2021-01-10] MEDS: Metoprolol XL (24 HR) Succ 50 MG TAB.ER.24H PO SCH (08:17)
[2021-01-10] MEDS: Insulin LISPRO 300 UNITS/3 ML VIAL SUBQ SCH ×2 (08:18→11:21)
[2021-01-10] MEDS: Lactulose Oral Soln 20 GM/30 ML UDC PO SCH (08:18)
== END 2021-01-10 11:37 | disposition home or self-care (01) ==
LOC: EMEROOARM 18:49 → 2ANU 18:49
PROVIDERS: ADMIT Internal Medicine; ATTEND Internal Medicine